=== PATIENT | female | born 1990 | race Caucasian/White ===

== ENCOUNTER 2024-07-04 08:55 | Day surgery (SDC) | payer BC ==
[2024-07-04] MEDS ORDERED: EPINEPHrine 1 MG/ML VIAL ONE (12:06)
[2024-07-04] MEDS ORDERED: Bupivacaine PF 0.5% 30 ML VIAL ONE (12:06)
[2024-07-04] MEDS ORDERED: Ondansetron PF 4 MG/2 ML Vial ONE (12:18)
[2024-07-04] MEDS ORDERED: Dexmedetomidine 200 MCG/2 ML VIAL ONE (12:18)
[2024-07-04] MEDS ORDERED: Fentanyl 250 MCG/5 ML VIAL ONE (12:18)
[2024-07-04] MEDS ORDERED: Dexamethasone 4 mg/ml Vial ONE (12:18)
[2024-07-04] MEDS ORDERED: PROPOFOL 40 ML ONE (12:18)
[2024-07-04] MEDS ORDERED: Rocuronium Bromide 10 MG/ML (10ML VIAL) ONE (12:18)
[2024-07-04] MEDS ORDERED: Lidocaine 1% PF 5 ML VIAL ONE (12:30)
[2024-07-04] MEDS ORDERED: SUGAMMADEX SODIUM 200 MG/2 ML VIAL ONE (12:46)
[2024-07-04] MEDS ORDERED: Ketorolac Tromethamine 30 MG (1 mL) VIAL ONE (12:48)
[2024-07-04] MEDS ORDERED: PHENYLEPHRINE-NS 100 MCG/ML 10 ML SYRINGE ONE (13:32)
== END 2024-07-04 14:51 | disposition home or self-care (01) ==
LOC: SDC 08:55
PROVIDERS: ATTEND Surgery
PROC: 0DTJ4ZZ Resection of Appendix, Percutaneous Endoscopic Approach (ICD-10-PCS; principal; 2024-07-04)
DX: K35.80 Unspecified acute appendicitis (principal); K38.8 Other specified diseases of appendix
CPT/HCPCS: 88304; A4649; J0171; J0665; J1100; J1885; J2405; J2704; J3010